=== PATIENT | female | born 1945 | race African-American/Black ===

== ENCOUNTER 2023-07-23 18:52 | Emergency (ER) | payer MEDICAID, MEDICARE, OTHER ==
[~2023-07-23] VITALS: Ht 170.2 cm; Wt 59.0 kg
[~2023-07-23 18:52] MED LIST: AMLO5TAB88 PO; ASPI-1497 PO; ATOR10TA PO; CHOL400D7 PO; CINA30 PO; CYCL25CA PO; FERR236T3 MT; MYCO360T3 PO; PRED5TAB PO; SODI650T PO
[2023-07-23 18:57] VITALS: O2SAT 96
[2023-07-23] MEDS: SODIUM CHLORIDE 0.9% 1,000 ML IV ONE (20:35)
[2023-07-23 21:01] LABS: BASOPHILS % 0.5 % (0.0-2.0); DIFFERENTIAL COMMENT 0; EOSINOPHILS % 0.2 % (0.0-5.0); HEMATOCRIT. 34.7 % (36.0-48.0); HEMOGLOBIN. 10.2 g/dL (12.0-16.0); LYMPHOCYTES % 11.1 % (20.0-50.0); MEAN CORPUSCULAR HEMOGLOBIN 25.3 pg (28.0-32.0); MEAN CORPUSCULAR HGB CONC 29.3 g/dL (31.0-37.0); MEAN CORPUSCULAR VOLUME 86.4 fL (81.0-99.0); MEAN PLATELET VOLUME 9.6 fl (7.4-10.4); MONOCYTES % 7.4 % (2.0-8.0); NEUTROPHILS % 80.8 % (40.0-76.0); PLATELET 340 x1000/uL (130-400); RED BLOOD CELL COUNT 4.02 mill/uL (4.2-5.4); RED CELL DISTRIBUTION WIDTH 18.1 % (11.6-14.6); WHITE BLOOD COUNT 15.1 x1000/uL (4.5-11.0)
[2023-07-23 21:20] LABS: ALANINE AMINOTRANSFERASE < 7 IU/L (10-49); ALBUMIN 3.4 g/dL (3.2-4.8); ASPARTATE AMINOTRANSFERASE 12 IU/L (<34); BILIRUBIN TOTAL 0.5 mg/dL (0.1-1.0); CALCIUM 10.1 mg/dL (8.7-10.4); CARBON DIOXIDE 17 mEq/L (21-32); CHLORIDE 119 mEq/L (98-107); CREATININE 3.3 mg/dL (0.6-1.0); GLUCOSE 59 mg/dL (70-105); POTASSIUM 5.1 mEq/L (3.5-5.1); PROTEIN TOTAL 6.2 g/dL (6.0-8.3); SODIUM 146 mEq/L (136-145); TROPONIN I HIGH SENSITIVITY 16 ng/L (3.0-34); UREA NITROGEN BLOOD 45 mg/dL (9-23)
[2023-07-23] MEDS: DEXTROSE 50% WATER 50ML SYRINGE IV NR (21:53)
[2023-07-23] MEDS: ONDANSETRON HCL 4MG/2ML INJ IV NR (21:53)
[2023-07-24 00:27] VITALS: BP 117/53; PULSE 83; RESP 18; TEMP 98.6
== END 2023-07-24 00:43 | disposition home or self-care (01) ==
LOC: ER 18:52
DX: E16.2 Hypoglycemia, unspecified (principal); N18.9 Chronic kidney disease, unspecified; Z98.890 Other specified postprocedural states; Z20.822 Contact with and (suspected) exposure to COVID-19
CPT/HCPCS: 99285; 96374; 71045; 96361; 96375; 87426; 80053; 83880; 85025; 84484; 36415; 93005; J2405; J7030